=== PATIENT | male | born 1995 | race African-American/Black ===

== ENCOUNTER 2017-06-27 14:21 | Emergency (ER) | payer SELFPAY ==
[2017-06-27 14:29] VITALS: BP 125/55; PULSE 60; TEMP 97.7; BMI 26.6
[2017-06-27] MEDS ORDERED: AZITHROMYCIN 1 GM PACKET PO ONE (16:27)
[2017-06-27] MEDS ORDERED: HIV POST EXPOSURE PROPHYLAXIS KIT NR ONE (16:28)
--- NOTE | 2017-06-27 16:35 | PDOC ---
History of Present Illness - General Chief Complaint: Revisit, Lab Variance Stated Complaint: PEP, wants HIV TEST, STD TEST/MEDS Time Seen by Provider: 06/27/17 15:57 History Source: Patient Exam Limitations: No Limitations - History of Present Illness Initial Comments: 06/27/17 16:28 here after being called/notified from sexual partner that after condom breaking , patient had mucous membrane and body fluid exposure to a known HIV-positive person. Patient has never had an STD, states patient is asymptomatic of any other sexually transmitted diseases including lesions, vaginal discharge, or any known STDs other than HIV disease. Patient is uncertain as to contact/ source patient viral load and HIV status. Was advised by hot line/referral line to come to emergency department for testing and PEP administration. Timing/Duration: 24 hours Severity: mild Associated Symptoms: reports: denies symptoms. denies: fever/chills, headaches Past History - Travel Traveled outside of the country in the last 30 days: No Close contact w/someone who was outside of country & ill: No - Past Medical History Allergies/Adverse Reactions: Allergies Allergy/AdvReac Type Severity Reaction Status Date / Time Penicillins Allergy Verified 06/27/17 15:17 Home Medications: Ambulatory Orders Raltegravir [Isentress] 400 mg PO BID #23 tab 06/27/17 COPD: No - Suicide/Smoking/Psychosocial Hx Smoking History: Never smoked Information on smoking cessation initiated: No Hx Alcohol Use: No Drug/Substance Use Hx: No Substance Use Type: None Review of Systems - Review of Systems Able to Perform ROS?: Yes Is the patient limited Cymraes proficient: Yes Constitutional: Yes: See HPI. No: Symptoms Reported, Malaise HEENTM: Yes: See HPI. No: Symptoms Reported Integumentary: Yes: See HPI. No: Symptoms Reported, Bruising All Other Systems: Reviewed and Negative *Physical Exam - Vital Signs Last Vital Signs Temp Pulse Resp BP Pulse Ox 97.7 F 60 18 125/55 99 06/27/17 14:27 06/27/17 14:27 06/27/17 14:27 06/27/17 14:27 06/27/17 14:27 - Physical Exam General Appearance: Yes: Nourished, Appropriately Dressed. No: Apparent Distress HEENT: positive: ANGE, Normal ENT Inspection, TMs Normal, Pharynx Normal Neck: positive: Supple. negative: Tender Respiratory/Chest: positive: Lungs Clear, Normal Breath Sounds Male Genitalia: positive: normal genitalia (noncircumcised). 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 Patient has penicillin ALLERGY therefore held Rocephin. PEP; given with 5 days supply of Raltegravir andf full worse of Truvada. Patient understands will need follow-up and completion of medication refill for raltegravir. As well as follow-up to have repeat lab testing. Given phone number for [facility], or recommended public health department follow-up Truvada 30 tabs given = amt needed fgor QD x 28 days. Raltegravir 400mg BID need additional 23 days as was given 10 tabs *DC/Admit/Observation/Transfer Diagnosis at time of Disposition: HIV exposure from body fluids - Discharge Dispostion Disposition: HOME Condition at time of disposition: Stable Admit: No - Referrals Referrals: [facility] Providers [Provider Group] - Patient Instructions Printed Discharge Instructions: DI for Accidental Exposure to Body Fluids Additional Instructions: PEP post exposure prophylaxis medications as directed Drink plenty of fluids Call and make appointment at [facility] for follow-up and further counseling and testing as needed Will need follow-up testing in 3-6 months for repeat HIV and hepatitis testing You been treated today with azithromycin 2 g by mouth for treatment of presumed chlamydia and gonorhea. The syphilis test, hepatitis B and C , gonorrhea and chlamydia testing will not be completed for the next few days. You may call [phone] and leave message for return phone call with lab results. Be sure to be clear with your name, birthdate, and phone number Always use condoms with the partners Followup with [facility] or [facility]D in one week for reevaluation and retesting. - Post Discharge Activity Forms/Work/School Notes: Back to Work
[2017-06-27] MEDS ORDERED: AZITHROMYCIN 500 MG TABLET ONE (16:37)
[2017-06-27 16:39] LABS: BASO % 0.5 % (0-2.0); EOS % 0.6 % (0-4.5); HEMATOCRIT 49.1 % (35.4-49); HEMOGLOBIN 16.7 GM/dL (11.7-16.9); LYMPH % 19.4 % (8-40); MCH 31.4 pg (25.7-33.7); MCHC 34.1 g/dl (32.0-35.9); MEAN CELL VOLUME 92.3 fl (80-96); MEAN PLT VOLUME 6.8 fl (7.5-11.1); MONO % 10.3 % (3.8-10.2); NEUT % 69.2 % (42.8-82.8); PLATELET COUNT 218 K/MM3 (134-434); RBC 5.33 M/mm3 (4.00-5.60); RDW 13.5 % (11.9-15.9); WHITE BLOOD COUNT 3.5 K/mm3 (4.0-10.0)
[2017-06-27] MEDS ORDERED: HIV POST EXPOSURE PROPHYLAXIS KIT PO ONE (16:39)
[2017-06-27 16:45] LABS: URINE APPEARANCE CLEAR; URINE BILIRUBIN NEGATIVE (<2.0 mg/dL); URINE BLOOD NEGATIVE (NEGATIVE); URINE COLOR LTYELLOW; URINE GLUCOSE (UA) NEGATIVE (NEGATIVE); URINE KETONE NEGATIVE (NEGATIVE); URINE LEUK ESTERASE NEGATIVE (NEGATIVE); URINE NITRITE NEGATIVE (NEGATIVE); URINE PROTEIN NEGATIVE (NEGATIVE); URINE UROBILINOGEN NEGATIVE mg/dL (0.2-1.0)
[2017-06-27 17:03] LABS: ALBUMIN 4.2 g/dl (3.4-5.0); ANION GAP 5 (8-16); BILIRUBIN,TOTAL 0.4 mg/dL (0.2-1.0); BLOOD UREA NITROGEN 16 mg/dL (7-18); CALCIUM 9.2 mg/dL (8.5-10.1); CHLORIDE 104 mmol/L (98-107); CO2 29 mmol/L (21-32); CREATININE 1.2 mg/dL (0.7-1.3); GLUCOSE,RANDOM 108 mg/dL (74-106); LDH 163 U/L (87-241); POTASSIUM 3.9 mmol/L (3.5-5.1); SGOT/AST 28 U/L (15-37); SGPT/ALT 41 U/L (12-78); SODIUM 138 mmol/L (136-145); TOT PROT 7.3 g/dl (6.4-8.2)
[2017-06-27 17:04] LABS: ALK PHOS 64 U/L (45-117)
[2017-06-29 06:09] LABS: HBsAG SCREEN Negative (Negative)
== END 2017-06-27 19:26 | disposition home or self-care (01) ==
LOC: JERFT 14:21
DX: Z77.21 Contact with and (suspected) exposure to potentially hazardous body fluids (principal)
CPT/HCPCS: 36415; 80053; 81003; 83615; 85025; 86593; 87340; 87389; 87491; 87591; 99281-25